=== PATIENT | female | born 1960 | race Caucasian/White ===

== ENCOUNTER 2022-02-23 19:30 | Inpatient (IN) | payer OTHER ==
[~2022-02-23] VITALS: Ht 165.1 cm; Wt 86.2 kg
[~2022-02-23 19:30] MED LIST: BUPRENORPHIN-N1 EACH SL; CARDIZEM 60MG T60 MG PO; LEVOFLOXACIN500 MG PO; LEXAPRO10 MG PO; LOTENSIN20 MG PO; MIRALAX 119 GR119 GM PO; MYCOSTATIN100000 UTS PO; RANITIDINE15 MG/1 ML PO; SYMBICORT 16010.2 GM INH
[2022-02-24 01:31] LABS: HEMOGLOBIN 9.9 gm/dl (12.3-15.3); RED BLOOD COUNT 3.77 M/UL (4.00-5.10); WHITE BLOOD COUNT 13.8 K/UL (4.5-11.0)
--- NOTE | 2022-02-24 08:23 | NUR ---
RN FOUND RESULTS FOR COVID AND FLU SWABS FROM [facility]. THEY WERE NEGATIVE. DR. WILHELM MADE AWARE.
[2022-02-24] MEDS ORDERED: VOLTAREN EC 7575 MG PO (11:14)
[2022-02-24] MEDS ORDERED: GABAPENTIN800 MG PO (11:15)
[2022-02-24] MEDS ORDERED: ENTRESTO 24 MG1 EACH PO (11:15)
[2022-02-24] MEDS ORDERED: FUROSEMIDE20 MG PO (11:16)
[2022-02-24] MEDS ORDERED: PROAIR HFA8.5 GM INH (11:16)
[2022-02-24] MEDS ORDERED: TRAMADOL HCL E100 MG PO (11:17)
[2022-02-24] MEDS ORDERED: COMBIVENT RESPIM4 GM INH (11:18)
[2022-02-24] MEDS ORDERED: ALPRAZOLAM0.5 MG PO (11:19)
[2022-02-24] MEDS ORDERED: VITAMIN C500 M4 PO (11:20)
[2022-02-24] MEDS ORDERED: IPRAT-ALBUT 0.5-3 ML INH (11:21)
[2022-02-24] MEDS ORDERED: PROTONIX40 MG PO (11:21)
[2022-02-24] MEDS ORDERED: POTASSIUM CHLO20 ME2 PO (11:23)
[2022-02-24] MEDS ORDERED: VITAMIN D325 MC6 PO (11:24)
[2022-02-24 12:39] LABS: HEMOGLOBIN 8.5 gm/dl (12.3-15.3)
[2022-02-24 13:06] LABS: RED BLOOD COUNT 3.16 M/UL (4.00-5.10)
[2022-02-25 03:50] LABS: HEMOGLOBIN 8.4 gm/dl (12.3-15.3); RED BLOOD COUNT 3.14 M/UL (4.00-5.10); WHITE BLOOD COUNT 7.2 K/UL (4.5-11.0)
[2022-02-26 06:40] LABS: HEMOGLOBIN 8.4 gm/dl (12.3-15.3); RED BLOOD COUNT 3.11 M/UL (4.00-5.10); WHITE BLOOD COUNT 7.3 K/UL (4.5-11.0)
[2022-02-26 07:06] LABS: BUN/CREATININE RATIO 38 (0-10)
[2022-02-27] MEDS ORDERED: MEDROL4 MG PO (08:15)
[2022-02-27] MEDS ORDERED: CEFUROXIME250 MG PO (08:15)
[2022-02-27 09:27] LABS: BUN/CREATININE RATIO 35 (0-10)
[2022-02-27 09:37] LABS: HEMOGLOBIN 8.6 gm/dl (12.3-15.3); RED BLOOD COUNT 3.22 M/UL (4.00-5.10); WHITE BLOOD COUNT 6.3 K/UL (4.5-11.0)
== END 2022-02-27 10:12 | disposition home or self-care (01) | DRG 193 ==
LOC: MED SURG 4 23:10
PROVIDERS: Internal Medicine; Internal Medicine Pulmonary Disease; ADMIT Internal Medicine
PROC: 5A09357 Assistance with Respiratory Ventilation, Less than 24 Consecutive Hours, Continuous Positive Airway Pressure (ICD-10-PCS; principal; 2022-02-23)
PROC: 5A09357 Assistance with Respiratory Ventilation, Less than 24 Consecutive Hours, Continuous Positive Airway Pressure (ICD-10-PCS; 2022-02-25)
PROC: 5A09357 Assistance with Respiratory Ventilation, Less than 24 Consecutive Hours, Continuous Positive Airway Pressure (ICD-10-PCS; 2022-02-27)
DX: J18.9 Pneumonia, unspecified organism (principal); J96.21 Acute and chronic respiratory failure with hypoxia; Z20.822 Contact with and (suspected) exposure to COVID-19; J96.22 Acute and chronic respiratory failure with hypercapnia; G93.41 Metabolic encephalopathy; N17.9 Acute kidney failure, unspecified; F11.20 Opioid dependence, uncomplicated; E87.2 Acidosis; G47.33 Obstructive sleep apnea (adult) (pediatric); K21.9 Gastro-esophageal reflux disease without esophagitis; E66.9 Obesity, unspecified; F41.9 Anxiety disorder, unspecified; J43.9 Emphysema, unspecified; D64.9 Anemia, unspecified; E86.0 Dehydration; K52.9 Noninfective gastroenteritis and colitis, unspecified; I11.0 Hypertensive heart disease with heart failure; I50.9 Heart failure, unspecified; Z87.440 Personal history of urinary (tract) infections; Z82.49 Family history of ischemic heart disease and other diseases of the circulatory system; Z82.3 Family history of stroke; Z87.891 Personal history of nicotine dependence; Z99.81 Dependence on supplemental oxygen; Z98.890 Other specified postprocedural states; Z68.31 Body mass index [BMI] 31.0-31.9, adult
CPT/HCPCS: 36415; 36600; 71045; 71046; 80048; 80053; 82550; 82553; 82803; 83605; 83615; 83690; 83735; 84100; 84484; 85025; 85384; 85730; 86140; 94640; 94660; 94664; 94760; 94762; J0456; J0696; J1644; J1650; J2920; J7030